=== PATIENT | male | born 1950 | race Caucasian/White ===

== ENCOUNTER 2016-10-13 17:28 | Inpatient (IN) | payer OTHER ==
[~2016-10-13] VITALS: Ht 180.3 cm; Wt 71.3 kg
[~2016-10-13 17:28] MED LIST: DESYREL 150 MG150 MG PO; Desyrel PO; Ecotrin PO; FLEXERIL10 MG PO; FOLIC ACID1 MG PO; K-Dur PO; NOHOMEMEDS; NORCO 5/3251 TABLET PO; ULTRAM50 MG PO; VITAMIN B-1100 MG PO
[2016-10-13 18:55] LABS: HEMATOCRIT 40.1 % (38.0-50.0); MCH 32.4 PG (29.0-34.0); MCHC 35.7 G/DL (30.0-36.0); MCV 90.7 FL (86-99); MEAN PLAT.VOLUME 9.4 uM^3 (9.0-12.4); PLATELET COUNT 218 K/uL (156-360); RBC DIS.WIDTH-CV 13.3 % (11.8-14.6); RED BLOOD COUNT 4.42 M/uL (4.00-5.50); WHITE BLOOD COUNT 6.3 K/uL (4.1-10.2)
[2016-10-13 19:03] LABS: CHLORIDE 107 mEq/L (99-109); POTASSIUM 3.7 mEq/L (3.7-5.4); SODIUM 142 mEq/L (136-147)
[2016-10-13 19:05] LABS: GLUCOSE 78 mg/dL (70-99)
[2016-10-13 19:06] LABS: ANION GAP 17 MEQ/L (2-14)
[2016-10-13 19:08] LABS: SERUM ETHYL ALCOHOL 228 mg/dL
[2016-10-13 19:09] LABS: GFR ESTIMATE (CALCULATED) > 59 mL/min/
[2016-10-13 19:11] LABS: UREA NITROGEN (BUN) 17 mg/dL (9-23)
[2016-10-13 19:12] LABS: SALICYLATE < 5.0 MG/DL (15-30)
[2016-10-13 23:48] LABS: AMPHETAMINE NEGATIVE (500 ng/mL); BARBITURATES NEGATIVE (200 ng/mL); BENZODIAZEPINES NEGATIVE (150 ng/mL); COCAINE NEGATIVE (150 ng/mL); INTERNAL CONTROLS VALID? YES; METHADONE NEGATIVE (200 ng/mL); METHAMPHETAMINE NEGATIVE (500 ng/mL); OPIATES (MORPHINE) NEGATIVE (100 ng/mL); OXYCODONE NEGATIVE (100 ng/mL); PHENCYCLIDINE NEGATIVE (25 ng/mL); PROPOXYPHENE NEGATIVE (300 ng/mL); THC CANNABINOIDS NEGATIVE (50 ng/mL); TRICYCLIC ANTIDEPRESSANTS NEGATIVE (300 ng/mL)
[2016-10-14 03:34] VITALS: BP 153/88
[2016-10-14 07:41] VITALS: BP 192/84
[2016-10-14 15:02] VITALS: BP 150/85
[2016-10-14 18:42] VITALS: BP 143/76
[2016-10-15 07:27] VITALS: BP 117/72
[2016-10-15 15:34] VITALS: BP 106/63
[2016-10-16 07:42] VITALS: BP 115/66
[2016-10-16 15:47] VITALS: BP 126/76
[2016-10-17 07:30] VITALS: BP 128/71
[2016-10-17 16:09] VITALS: BP 118/68
[2016-10-18 07:42] VITALS: BP 115/60
[2016-10-18] MEDS ORDERED: CITALOPRAM HBR10 MG PO (09:36)
[2016-10-18] MEDS ORDERED: RISPERDAL2 MG PO (09:36)
[2016-10-18] MEDS ORDERED: AMANTADINE100 MG PO (09:36)
[2016-10-18] MEDS ORDERED: HYDROCHLOROTH12.5 M3 PO (09:36)
== END 2016-10-18 12:47 | disposition home or self-care (01) | DRG 882 ==
LOC: EME 17:28 → 1WEST 10-14 00:57 → EDOF 10-14 00:57 → 1WEST 10-14 00:57
PROVIDERS: Emergency Medicine
PROC: HZ2ZZZZ Detoxification Services for Substance Abuse Treatment (ICD-10-PCS; principal; 2016-10-14)
DX: F43.10 Post-traumatic stress disorder, unspecified (principal); F10.239 Alcohol dependence with withdrawal, unspecified; R45.851 Suicidal ideations; R45.850 Homicidal ideations; I10 Essential (primary) hypertension; J44.9 Chronic obstructive pulmonary disease, unspecified; F17.200 Nicotine dependence, unspecified, uncomplicated; Y90.7 Blood alcohol level of 200-239 mg/100 ml
CPT/HCPCS: 80048; 82803; 85027; 90837; 97150 GO; 97165 GO; 97530 GO; 99281; 99285; G0480; G9033; J1630

== ENCOUNTER 2017-05-07 16:24 | Inpatient (IN) | payer OTHER ==
[~2017-05-07] VITALS: Ht 182.9 cm; Wt 77.6 kg
[~2017-05-07 16:24] MED LIST changes: +AMANTADINE100 MG PO; +CITALOPRAM HBR10 MG PO; +HYDROCHLOROTH12.5 M3 PO; +RISPERDAL2 MG PO
[2017-05-07 18:16] LABS: HEMATOCRIT 43.2 % (38.0-50.0); HEMOGLOBIN 15.3 G/DL (12.5-16.6); MCHC 35.4 G/DL (30.0-36.0); MCV 87.6 FL (86-99); PLATELET COUNT 212 K/uL (156-360); RBC DIS.WIDTH-CV 13.5 % (11.8-14.6); RBC DIS.WIDTH-SD 43.1 % (39-53); RED BLOOD COUNT 4.93 M/uL (4.00-5.50); WHITE BLOOD COUNT 9.9 K/uL (4.1-10.2)
[2017-05-07 18:29] LABS: CHLORIDE 101 mEq/L (99-109); POTASSIUM 4.4 mEq/L (3.7-5.4); SODIUM 134 mEq/L (136-147)
[2017-05-07 18:30] LABS: GLUCOSE 102 mg/dL (70-99)
[2017-05-07 18:34] LABS: CREATININE 1.2 mg/dL (0.6-1.3); GFR ESTIMATE (CALCULATED) > 59 mL/min/ (58.99-99999)
[2017-05-07 18:35] LABS: UREA NITROGEN (BUN) 12 mg/dL (9-23)
[2017-05-07 18:39] LABS: TROP-I INTERPRETATION NEGATIVE; TROPONIN-I < 0.01 ng/mL (0.0-0.30)
[2017-05-07 19:54] LABS: APPEARANCE CLEAR ((CLEAR)); BILIRUBIN NEGATIVE; BLOOD SMALL; COLOR YELLOW ((YELLOW)); GLUCOSE (STRIP) NEGATIVE; KETONES NEGATIVE; LEUKOCYTES NEGATIVE; NITRITE NEGATIVE; PROTEIN (STRIP) NEGATIVE; SPECIFIC GRAVITY 1.011 (1.000-1.030); UROBILINOGEN 0.2 MG/DL (0.2-1.0)
[2017-05-07 20:05] LABS: BACTERIA NONE SEEN /HPF; EPITHELIAL CELLS RARE /HPF; MUCUS TRACE /LPF; WHITE BLOOD CELLS 0-5 /HPF (0-5)
[2017-05-07] MEDS ORDERED: OMEPRAZOLE20 MG PO (21:06)
[2017-05-07] MEDS ORDERED: SERTRALINE HCL100 MG PO (21:06)
[2017-05-07] MEDS ORDERED: MINIPRESS2 MG PO (21:06)
[2017-05-07] MEDS ORDERED: SEROQUEL400 MG PO (21:07)
[2017-05-07] MEDS ORDERED: BENZTROPINE MESY2 MG PO (21:07)
[2017-05-07 21:51] LABS: MAGNESIUM 1.5 mg/dL (1.3-2.7)
[2017-05-07 21:55] LABS: SERUM ETHYL ALCOHOL < 10 mg/dL
[2017-05-07 22:46] VITALS: BP 145/76
[2017-05-08 03:33] VITALS: BP 148/84
[2017-05-08 07:56] VITALS: BP 134/69
[2017-05-08 11:33] VITALS: BP 162/77
[2017-05-08 12:25] LABS: BENZODIAZEPINES, URINE SCREEN POSITIVE (200 ng/mL)
[2017-05-08 13:26] LABS: INTER. NORMALIZED RATIO 1.2
[2017-05-08 13:29] LABS: PTT 28.1 SEC (25-37)
[2017-05-08 13:35] LABS: ALBUMIN 3.9 G/DL (3.2-4.8); ALKALINE PHOSPHATASE 91 IU/L (3-129); ALT (GPT) 17 IU/L (3-49); AST (GOT) 14 IU/L (2-34); DIRECT BILIRUBIN 0.2 mg/dL (0.0-0.3); TOTAL BILIRUBIN 0.8 MG/DL (0.0-1.0); TOTAL PROTEIN 6.1 G/DL (6.4-8.3)
[2017-05-08 16:23] VITALS: BP 140/82
[2017-05-08 17:10] VITALS: BP 151/69
[2017-05-08 20:00] VITALS: BP 117/60
[2017-05-09 03:37] VITALS: BP 117/62
[2017-05-09 08:05] VITALS: BP 115/69
[2017-05-09 12:25] VITALS: BP 130/71
[2017-05-09 16:22] VITALS: BP 135/64
[2017-05-09 20:03] VITALS: BP 123/59
[2017-05-09 23:31] VITALS: BP 131/60
[2017-05-10 07:32] VITALS: BP 118/70
[2017-05-10 11:52] VITALS: BP 107/61
[2017-05-10 15:36] VITALS: BP 110/59
[2017-05-10 19:55] VITALS: BP 118/72
[2017-05-10 23:11] VITALS: BP 124/70
[2017-05-11 04:26] VITALS: BP 110/57
[2017-05-11 08:30] VITALS: BP 118/72
[2017-05-11 11:11] VITALS: BP 108/59
[2017-05-11 16:52] VITALS: BP 117/91
[2017-05-11 20:13] VITALS: BP 106/57
[2017-05-11 22:58] VITALS: BP 121/67
[2017-05-12 05:34] LABS: BASOPHIL (%) 0.4 % (0-1); EOSINOPHIL (%) 0.9 % (0-5); EOSINOPHIL COUNT 0.1 K/uL (0-0.3); HEMATOCRIT 41.6 % (38.0-50.0); HEMOGLOBIN 14.7 G/DL (12.5-16.6); IMMATURE GRANULOCYTE (%) 0.7 % (0.0-0.7); LYMPHOCYTE (%) 16.7 % (15-42); LYMPHOCYTE COUNT 1.6 K/uL (1.0-2.8); MCH 30.6 PG (29.0-34.0); MCHC 35.3 G/DL (30.0-36.0); MCV 86.7 FL (86-99); MONOCYTE (%) 8.7 % (3-12); MONOCYTE COUNT 0.8 K/uL (0-0.8); NEUTROPHIL (%) 72.6 % (45-76); PLATELET COUNT 260 K/uL (156-360); RBC DIS.WIDTH-CV 13.2 % (11.8-14.6); RBC DIS.WIDTH-SD 41.1 % (39-53); WHITE BLOOD COUNT 9.7 K/uL (4.1-10.2)
[2017-05-12 05:55] LABS: CHLORIDE 101 MEQ/L (99-109); CREATININE 1.2 MG/DL (0.6-1.3); GFR ESTIMATE (CALCULATED) > 59 mL/min/ (58.99-99999); GLUCOSE 94 mg/dL (70-99); POTASSIUM 3.8 MEQ/L (3.7-5.4); SODIUM 132 MEQ/L (136-147); UREA NITROGEN (BUN) 16 mg/dL (9-23)
[2017-05-12 08:44] VITALS: BP 114/70
[2017-05-12] MEDS ORDERED: FOLIC ACID1 MG PO (10:59)
[2017-05-12] MEDS ORDERED: BENTYL20 MG PO (10:59)
[2017-05-12] MEDS ORDERED: CIPROFLOXACIN500 M1 PO (10:59)
[2017-05-12] MEDS ORDERED: TAMSULOSIN HCL0.4 MG PO (10:59)
[2017-05-12] MEDS ORDERED: ZIPRASIDONE HCL20 MG PO (10:59)
[2017-05-12] MEDS ORDERED: Thiamine,Vitamin B1 PO (10:59)
[2017-05-12] MEDS ORDERED: METRONIDAZOLE500 MG PO (10:59)
== END 2017-05-12 14:52 | disposition home health service (06) | DRG 392 ==
LOC: EME 16:24 → EDOF 21:02 → ENRESERV 21:05 → 5WEST 22:39 → ENPENDDIS 05-12 12:58 → 5WEST 05-12 14:52
PROVIDERS: Nurse Practitioner Family; Physician Assistant Medical; Specialist; Student in an Organized Health Care Education/Training Program
PROC: HZ2ZZZZ Detoxification Services for Substance Abuse Treatment (ICD-10-PCS; principal; 2017-05-08)
DX: K52.9 Noninfective gastroenteritis and colitis, unspecified (principal); F10.231 Alcohol dependence with withdrawal delirium; F01.51 Vascular dementia, unspecified severity, with behavioral disturbance; F11.20 Opioid dependence, uncomplicated; F17.200 Nicotine dependence, unspecified, uncomplicated; F43.10 Post-traumatic stress disorder, unspecified; I10 Essential (primary) hypertension; F32.9 Major depressive disorder, single episode, unspecified; J44.9 Chronic obstructive pulmonary disease, unspecified; R33.9 Retention of urine, unspecified; Z86.010 Personal history of colon polyps; Z23 Encounter for immunization; Z87.820 Personal history of traumatic brain injury
CPT/HCPCS: 71010; 74176; 74177; 80048; 80076; 80306 90; 81003; 82140; 83735; 84484; 85025; 85027; 85610; 85730; 87177; 87493; 87506; 90686; 93005; 94799; 99281; 99285; G0378; G0480; J1650; J2060; J3411; J3475; J3486; J7030; S0030

== ENCOUNTER 2017-12-01 17:31 | Emergency (ER) | payer OTHER ==
[~2017-12-01] VITALS: Ht 180.3 cm; Wt 72.2 kg
[~2017-12-01 17:31] MED LIST changes: +BENTYL20 MG PO; +BENZTROPINE MESY2 MG PO; +CIPROFLOXACIN500 M1 PO; +METRONIDAZOLE500 MG PO; +MINIPRESS2 MG PO; +OMEPRAZOLE20 MG PO; +SEROQUEL400 MG PO; +SERTRALINE HCL100 MG PO; +TAMSULOSIN HCL0.4 MG PO; +Thiamine,Vitamin B1 PO; +ZIPRASIDONE HCL20 MG PO
[2017-12-01 18:15] LABS: HEMATOCRIT 42.1 % (38.0-50.0); HEMOGLOBIN 15.2 G/DL (12.5-16.6); MCH 31.3 PG (29.0-34.0); MCHC 36.1 G/DL (30.0-36.0); MCV 86.8 FL (86-99); PLATELET COUNT 323 K/uL (156-360); RBC DIS.WIDTH-CV 13.2 % (11.8-14.6); RBC DIS.WIDTH-SD 41.9 % (39-53); RED BLOOD COUNT 4.85 M/uL (4.00-5.50)
[2017-12-01 18:26] LABS: CHLORIDE 106 mEq/L (99-109); POTASSIUM 4.7 mEq/L (3.7-5.4); SODIUM 141 mEq/L (136-147)
[2017-12-01 18:28] LABS: GLUCOSE 72 mg/dL (70-99); TOTAL PROTEIN 6.8 g/dL (6.4-8.3)
[2017-12-01 18:30] LABS: TOTAL BILIRUBIN 0.3 mg/dL (0.0-1.0)
[2017-12-01 18:31] LABS: ALKALINE PHOSPHATASE 110 IU/L (3-129)
[2017-12-01 18:32] LABS: CREATININE 1.2 mg/dL (0.6-1.3); GFR ESTIMATE (CALCULATED) > 59 mL/min/ (58.99-99999)
[2017-12-01 18:33] LABS: AST (GOT) 11 IU/L (2-34); UREA NITROGEN (BUN) 13 mg/dL (9-23)
[2017-12-01 18:40] LABS: ALT (GPT) 10 IU/L (3-49)
[2017-12-01 18:50] LABS: APPEARANCE CLEAR ((CLEAR)); BILIRUBIN NEGATIVE; BLOOD NEGATIVE; COLOR YELLOW ((YELLOW)); GLUCOSE (STRIP) NEGATIVE; KETONES NEGATIVE; LEUKOCYTES NEGATIVE; NITRITE NEGATIVE; PROTEIN (STRIP) NEGATIVE; SPECIFIC GRAVITY 1.021 (1.000-1.030); UCUL ADDED? NO; UROBILINOGEN 0.2 MG/DL (0.2-1.0)
[2017-12-01 18:54] LABS: LIPASE 26 U/L (1.0-51.0)
[2017-12-01 19:58] VITALS: BP 140/68
== END 2017-12-01 19:59 | disposition home or self-care (01) ==
LOC: EME 17:31
PROVIDERS: Nurse Practitioner Family
DX: R10.32 Left lower quadrant pain (principal); K80.20 Calculus of gallbladder without cholecystitis without obstruction; R06.02 Shortness of breath; J98.11 Atelectasis; I70.0 Atherosclerosis of aorta; F17.200 Nicotine dependence, unspecified, uncomplicated
CPT/HCPCS: 71046; 74177; 80053; 81003; 83690; 85027; J1885; J7030